=== PATIENT | male | born 1975 | race African-American/Black ===

== ENCOUNTER 2019-09-30 12:33 | Inpatient (IN) | payer OTHER ==
--- NOTE | 2019-09-30 16:32 | HP ---
CIWA Score Nausea/Vomitin Muscle Tremors: 3 Anxiety: 4-Mod. Anxious/Guarded Agitation: 2 Paroxysmal Sweats: 2 Orientation: 0-Oriented Tacttile Disturbances: 0-None Auditory Disturbances: 0-None Visual Disturbances: 0-None Headache: 0-None Present CIWA-Ar Total Score: 13 - Admission Criteria OASAS Guidelines: Admission for Medically Managed Detox: Requires at least one of the followin. CIWA greater than 12 2. Seizures within the past 24 hours 3. Delirium tremens within the past 24 hours 4. Hallucinations within the past 24 hours 5. Acute intervention needed for co occurring medical disorder 6. Acute intervention needed for co occurring psychiatric disorder 7. Severe withdrawal that cannot be handled at a lower level of care (continued vomiting, continued diarrhea, abnormal vital signs) requiring intravenous medication and/or fluids 8. Admission ROS [facility] Chief Complaint: Alcohol withdrawal symptoms Allergies/Adverse Reactions: Allergies Allergy/AdvReac Type Severity Reaction Status Date / Time No Known Allergies Allergy Verified 09/30/19 15:15 History of Present Illness: 44 years old male with a long history of alcohol dependence is seeking admission to detox. Patient reports that he has not been in detox before. He report medical history gout and denies psychiatric history. He reports insignificant period of sobriety. He is unemployed and lives with his mother in [place]. He reports that he had a blackout about a month ago. Exam Limitations: No Limitations - Ebola screening Have you traveled outside of the country in the last 21 days: No Have you had contact with anyone from an Ebola affected area: No Do you have a fever: No - Review of Systems Constitutional: Chills, Malaise, Night Sweats EENT: reports: No Symptoms Reported Cardiac: reports: No Symptoms Reported GI: reports: Poor Appetite, Poor Fluid Intake : reports: No Symptoms Reported Musculoskeletal: reports: No Symptoms Reported Integumentary: reports: Dryness, Flushing Neuro: reports: Tremors Endocrine: reports: No Symptoms Reported, Unexplained Weight Loss Hematology: reports: No Symptoms Reported Psychiatric: reports: Mood/Affect Appropiate, Orientated x3, Anxious, Depressed Other Systems: Reviewed and Negative Patient History - Patient Medical History Hx Anemia: No Hx Asthma: No Hx Chronic Obstructive Pulmonary Disease (COPD): No Hx Cancer: No Hx Cardiac Disorders: No Hx Congestive Heart Failure: No Hx Hypertension: No Hx Hypercholesterolemia: No Hx Pacemaker: No HX Cerebrovascular Accident: No Hx Seizures: No Hx Dementia: No Hx Diabetes: No Hx Gastrointestinal Disorders: No Hx Liver Disease: No Hx Genitourinary Disorders: No Hx Sexually Transmitted Disorders: No Hx Renal Disease (ESRD): No Hx Thyroid Disease: No Hx Human Immunodeficiency Virus (HIV): No (Negative 2019) Hx Hepatitis C: No Hx Depression: No Hx Suicide Attempt: No (Denies suicidal ideation at this time) Hx Bipolar Disorder: No Hx Schizophrenia: No Other Medical History: GOUT - Not on medication - Patient Surgical History Past Surgical History: No - PPD History Previous Implant?: No Documented Results: Negative w/proof Implanted On Prior [facility] Admission?: No PPD to be Administered?: Yes - Reproductive History Patient is a Female of Child Bearing Age (11 -55 yrs old): No (male) - Smoking Cessation Smoking history: Current every day smoker Have you smoked in the past 12 months: Yes Aproximately how many cigarettes per day: 20 Hx Chewing Tobacco Use: No Initiated information on smoking cessation: Yes 'Breaking Loose' booklet given: 09/30/19 - Substance & Tx. History Hx Alcohol Use: Yes Hx Substance Use: Yes Substance Use Type: Alcohol, Marijuana Hx Substance Use Treatment: No - Substances abused Alcohol Substance route: Oral Frequency: Daily Amount used: 3 beers Age of first use: 17 Date of last use: 09/30/19 Admission Physical Exam [facility] - Vital Signs Vital Signs: Vital Signs - 24 hr 09/30/19 15:15 Temperature 97.1 F L Pulse Rate 80 Respiratory 20 Rate Blood Pressure 128/79 - Physical General Appearance: Yes: Moderate Distress, Tremorous, Irritable, Sweating, Anxious HEENTM: Yes: Within Normal Limits Respiratory: Yes: Lungs Clear, Normal Breath Sounds, No Respiratory Distress Neck: Yes: Supple Breast: Yes: Breast Exam Deferred Cardiology: Yes: Regular Rhythm, Regular Rate Abdominal: Yes: Normal Bowel Sounds, Soft Genitourinary: Yes: Within Normal Limits Back: Yes: Normal Inspection Musculoskeletal: Yes: Within Normal Limits Extremities: Yes: Tremors Neurological: Yes: Motor Strength 5/5, Normal Mood/Affect Integumentary: Yes: Warm Lymphatic: Yes: Within Normal Limits - Diagnostic (1) Alcohol dependence with withdrawal, uncomplicated Current Visit: Yes Status: Acute (2) Nicotine dependence Current Visit: Yes Status: Acute Qualifiers: Nicotine product type: cigarettes Substance use status: in withdrawal Qualified Code(s): F17.213 - Nicotine dependence, cigarettes, with withdrawal (3) Gout Current Visit: Yes Status: Chronic Qualifiers: Gout site: foot Laterality: right Cleared for Admission [facility] - Detox or Rehab [facility] Level of Care: Medically Managed Detox Regimen/Protocol: Librium Breathalyzer - Breathalyzer Breathalyzer: 0.063 Urine Drug Screen - Test Device Lot number: [id number] Expiration date: 05/05/21 - Control Is test valid?: Yes - Results Drug screen NEGATIVE: No Urine drug screen results: THC-Marijuana Inpatient Rehab Admission - Rehab Decision to Admit Inpatient rehab admission?: No
[2019-09-30] MEDS ORDERED: NICOTINE POLACRILEX 2 MG GUM BUC PRN (16:39)
[2019-09-30] MEDS ORDERED: chlordiazePOXIDE HCL 10 MG CAPSULE PO PRN (16:39)
[2019-09-30] MEDS ORDERED: BISMUTH SUBSALICYLATE 524 MG/30 ML UD PO PRN (16:39)
[2019-09-30] MEDS ORDERED: MENTHOL/PHENOL 1 EACH UD MM PRN (16:39)
[2019-09-30] MEDS ORDERED: hydrOXYzine PAMOATE 25 MG CAPSULE (FP) PO PRN (16:39)
[2019-09-30] MEDS ORDERED: MAG HYDROX/AL HYDROX/SIMETH 30 ML UNIT-DOSE CUP PO PRN (16:39)
[2019-09-30] MEDS ORDERED: MAGNESIUM CITRATE 300 ML BOTTLE PO PRN (16:39)
[2019-09-30] MEDS ORDERED: IBUPROFEN 400 MG TABLET (FP) PO PRN (16:39)
[2019-09-30] MEDS ORDERED: ACETAMINOPHEN 325 MG TABLET (FP) PO PRN ×2 (16:39)
[2019-09-30] MEDS ORDERED: MAGNESIUM HYDROX 2400MG/30ML ORAL SUSPENSION 30 ML CUP PO PRN (16:39)
[2019-09-30] MEDS ORDERED: chlordiazePOXIDE HCL 25 MG CAPSULE PO ONE (17:30)
[2019-09-30] MEDS: THIAMINE HCL 100 MG TABLET (FP) PO SCH (22:27)
[2019-09-30] MEDS: chlordiazePOXIDE HCL 25 MG CAPSULE PO SCH (22:27)
[2019-10-01] MEDS: chlordiazePOXIDE HCL 25 MG CAPSULE PO SCH ×3 (05:30→22:12)
[2019-10-01] MEDS: METHOCARBAMOL 500 MG TABLET PO PRN ×2 (05:32→15:04)
[2019-10-01 10:19] LABS: HEMATOCRIT 36.3 % (35.4-49); HEMOGLOBIN 11.6 GM/dL (11.7-16.9); MCH 26.8 pg (25.7-33.7); MCHC 31.9 g/dl (32.0-35.9); PLATELET COUNT 181 K/MM3 (134-434); RBC 4.32 M/mm3 (4.00-5.60); RDW 13.9 % (11.9-15.9); WHITE BLOOD COUNT 5.4 K/mm3 (4.0-10.0)
[2019-10-01] MEDS: PRENATAL VITAMINS W/ FOLIC ACID TABLET (FP) PO SCH (10:21)
[2019-10-01] MEDS: NICOTINE 21 MG/24 HOURS TOPICAL PATCH TD SCH (10:21)
[2019-10-01 10:29] LABS: ALBUMIN 3.7 g/dl (3.4-5.0); BILIRUBIN,TOTAL 1.2 mg/dL (0.2-1); BLOOD UREA NITROGEN 6.3 mg/dL (7-18); CALCIUM 9.2 mg/dL (8.5-10.1); CREATININE 0.7 mg/dL (0.55-1.3); TOT PROT 7.3 g/dl (6.4-8.2)
--- NOTE | 2019-10-01 12:23 | PN ---
S CIWA - CIWA Score Nausea/Vomitin-No Nausea/No Vomiting Muscle Tremors: 3 Anxiety: 2 Agitation: 3 Paroxysmal Sweats: 2 Orientation: 0-Oriented Tacttile Disturbances: 0-None Auditory Disturbances: 0-None Visual Disturbances: 0-None Headache: 0-None Present CIWA-Ar Total Score: 10 S Progress Note (SOAP) Subjective: sweats shakes interrupted sleep body aches irritable Objective: 10/01/19 12:19 Vital Signs Temperature 99.7 F H 10/01/19 09:29 Pulse Rate 86 10/01/19 09:29 Respiratory Rate 16 10/01/19 09:29 Blood Pressure 155/104 H 10/01/19 09:29 O2 Sat by Pulse Oximetry (%) Laboratory Tests 10/01/19 10/01/19 10/01/19 07:40 07:40 07:40 WBC 5.4 RBC 4.32 Hgb 11.6 L Hct 36.3 MCV 84.0 MCH 26.8 MCHC 31.9 L RDW 13.9 Plt Count 181 MPV 8.0 Sodium 141 Potassium 4.0 Chloride 107 Carbon Dioxide 30 Anion Gap 4 L BUN 6.3 L Creatinine 0.7 Est GFR (CKD-EPI)AfAm 133.96 Est GFR (CKD-EPI)NonAf 115.58 Random Glucose 91 Calcium 9.2 Total Bilirubin 1.2 H AST 44 H ALT 34 Alkaline Phosphatase 43 L Total Protein 7.3 Albumin 3.7 RPR Titer Nonreactive aaox3 ambulating no acute distress Assessment: 10/01/19 12:23 withdrawal sx Plan: continue detox
--- NOTE | 2019-10-01 13:34 | EKG ---
Test Reason : Blood Pressure : / mmHG Vent. Rate : 085 BPM Atrial Rate : 085 BPM P-R Int : 186 ms QRS Dur : 094 ms QT Int : 372 ms P-R-T Axes : 076 057 059 degrees QTc Int : 442 ms NORMAL SINUS RHYTHM NORMAL ECG NO PREVIOUS ECGS AVAILABLE Confirmed by GUILLE CAMARILLO MD ([id number]) on 10/01/2019 1:34:02 PM Referred By: Confirmed By:GUILLE CAMARILLO MD
--- NOTE | 2019-10-01 15:24 | PN ---
[facility] Progress Note Note: pt requesting meloxicam however our pharmacy does not carry this medication. Pt agreed to have motrin 600mg and roboxin prn.
[2019-10-01] MEDS: MELATONIN 5 MG TABLETS PO PRN (22:12)
[2019-10-01] MEDS: IBUPROFEN 600 MG TABLET (FP) PO PRN (22:34)
[2019-10-01] MEDS: THIAMINE HCL 100 MG TABLET (FP) PO SCH (22:34)
[2019-10-02] MEDS: chlordiazePOXIDE 5 MG CAPSULE PO SCH ×3 (06:25→22:47)
[2019-10-02] MEDS: PRENATAL VITAMINS W/ FOLIC ACID TABLET (FP) PO SCH (10:39)
[2019-10-02] MEDS: NICOTINE 21 MG/24 HOURS TOPICAL PATCH TD SCH (10:39)
--- NOTE | 2019-10-02 15:03 | PN ---
S CIWA - CIWA Score Nausea/Vomitin-No Nausea/No Vomiting Muscle Tremors: 3 Anxiety: 3 Agitation: 2 Paroxysmal Sweats: 3 Orientation: 0-Oriented Tacttile Disturbances: 0-None Auditory Disturbances: 0-None Visual Disturbances: 2-Mild Sensitivity Headache: 0-None Present CIWA-Ar Total Score: 13 B[facility] Progress Note (SOAP) Subjective: Sweating, Tremors, Interrupted Sleep. Objective: PATIENT A & O X 3. IN NO ACUTE DISTRESS. 10/02/19 15:03 Vital Signs Temperature 98.1 F 10/02/19 13:29 Pulse Rate 90 10/02/19 13:29 Respiratory Rate 18 10/02/19 13:29 Blood Pressure 149/99 10/02/19 13:29 O2 Sat by Pulse Oximetry (%) Laboratory Tests 10/01/19 10/01/19 10/01/19 07:40 07:40 07:40 WBC 5.4 RBC 4.32 Hgb 11.6 L Hct 36.3 MCV 84.0 MCH 26.8 MCHC 31.9 L RDW 13.9 Plt Count 181 MPV 8.0 Sodium 141 Potassium 4.0 Chloride 107 Carbon Dioxide 30 Anion Gap 4 L BUN 6.3 L Creatinine 0.7 Est GFR (CKD-EPI)AfAm 133.96 Est GFR (CKD-EPI)NonAf 115.58 Random Glucose 91 Calcium 9.2 Total Bilirubin 1.2 H AST 44 H ALT 34 Alkaline Phosphatase 43 L Total Protein 7.3 Albumin 3.7 RPR Titer Nonreactive LABS NOTED. Assessment: 10/02/19 15:04 WITHDRAWAL SYMPTOMS. ELEVATED BLOOD PRESSURE (NO HISTORY OF HYPERTENSION REPORTED BY PATIENT ON DETOX ADMISSION ASSESSMENT). ELEVATED AST LEVEL. 10/02/19 15:06 Plan: CONTINUE DETOX. CLONIDINE, 0.1 MG X 1 DOSE ORALLY FOR ELEVATED BLOOD PRESSURE.
[2019-10-02] MEDS ORDERED: cloNIDine HCL 0.1 MG TABLET PO ONE (15:05)
[2019-10-02] MEDS: MELATONIN 5 MG TABLETS PO PRN (22:47)
[2019-10-02] MEDS: THIAMINE HCL 100 MG TABLET (FP) PO SCH (22:47)
[2019-10-02] MEDS: IBUPROFEN 600 MG TABLET (FP) PO PRN (22:48)
[2019-10-03] MEDS ORDERED: chlordiazePOXIDE HCL 10 MG CAPSULE PO PRN
[2019-10-03] MEDS: chlordiazePOXIDE HCL 10 MG CAPSULE PO SCH ×3 (06:38→22:15)
[2019-10-03] MEDS: PRENATAL VITAMINS W/ FOLIC ACID TABLET (FP) PO SCH (10:29)
[2019-10-03] MEDS: NICOTINE 21 MG/24 HOURS TOPICAL PATCH TD SCH (10:29)
[2019-10-03] MEDS ORDERED: cloNIDine HCL 0.1 MG TABLET PO PRN (15:49)
--- NOTE | 2019-10-03 15:54 | PN ---
S CIWA - CIWA Score Nausea/Vomitin-No Nausea/No Vomiting Muscle Tremors: None Anxiety: 2 Agitation: 2 Paroxysmal Sweats: 2 Orientation: 0-Oriented Tacttile Disturbances: 0-None Auditory Disturbances: 0-None Visual Disturbances: 0-None Headache: 0-None Present CIWA-Ar Total Score: 6 BHS Progress Note (SOAP) Subjective: Sweating, interrupted sleep Objective: 10/03/19 15:48 Last Vital Signs Temp Pulse Resp BP Pulse Ox 98.2 F 70 18 140/95 10/03/19 13:41 10/03/19 13:41 10/03/19 13:41 10/03/19 13:41 Elevated b/p: denies htn, not on medication Laboratory Tests 10/01/19 10/01/19 10/01/19 07:40 07:40 07:40 WBC 5.4 RBC 4.32 Hgb 11.6 L Hct 36.3 MCV 84.0 MCH 26.8 MCHC 31.9 L RDW 13.9 Plt Count 181 MPV 8.0 Sodium 141 Potassium 4.0 Chloride 107 Carbon Dioxide 30 Anion Gap 4 L BUN 6.3 L Creatinine 0.7 Est GFR (CKD-EPI)AfAm 133.96 Est GFR (CKD-EPI)NonAf 115.58 Random Glucose 91 Calcium 9.2 Total Bilirubin 1.2 H AST 44 H ALT 34 Alkaline Phosphatase 43 L Total Protein 7.3 Albumin 3.7 RPR Titer Nonreactive Labs reviewed Assessment: 10/03/19 15:52 Withdrawal sxs Elevated b/p noted Plan: Continue detox Encouraged PO water intake Patient scheduled for discharge tomorrow Elevated b/p: start clonidine 0.1mg PO q8hr prn if b/p > 140/90 or for withdrawal sxs (hold if b/p < 110/60)
[2019-10-03] MEDS: THIAMINE HCL 100 MG TABLET (FP) PO SCH (22:15)
[2019-10-03] MEDS: MELATONIN 5 MG TABLETS PO PRN (22:15)
[2019-10-03] MEDS: IBUPROFEN 600 MG TABLET (FP) PO PRN (22:17)
[2019-10-04] MEDS ORDERED: chlordiazePOXIDE HCL 10 MG CAPSULE PO ONE (05:00)
[2019-10-04 06:54] VITALS: BP 131/79; PULSE 65; TEMP 97.9
--- NOTE | 2019-10-04 08:50 | DS ---
[facility] Detox Discharge Summary Admission Date: 09/30/19 Discharge Date: 10/04/19 - History Present History: Alcohol Dependence - Physical Exam Results Vital Signs: Vital Signs Temperature 97.9 F 10/04/19 06:53 Pulse Rate 65 10/04/19 06:53 Respiratory Rate 18 10/04/19 06:53 Blood Pressure 131/79 10/04/19 06:53 O2 Sat by Pulse Oximetry (%) Pertinent Admission Physical Exam Findings: Vital Signs Temperature 97.9 F 10/04/19 06:53 Pulse Rate 65 10/04/19 06:53 Respiratory Rate 18 10/04/19 06:53 Blood Pressure 131/79 10/04/19 06:53 O2 Sat by Pulse Oximetry (%) Laboratory Tests 10/01/19 10/01/19 10/01/19 07:40 07:40 07:40 WBC 5.4 RBC 4.32 Hgb 11.6 L Hct 36.3 MCV 84.0 MCH 26.8 MCHC 31.9 L RDW 13.9 Plt Count 181 MPV 8.0 Sodium 141 Potassium 4.0 Chloride 107 Carbon Dioxide 30 Anion Gap 4 L BUN 6.3 L Creatinine 0.7 Est GFR (CKD-EPI)AfAm 133.96 Est GFR (CKD-EPI)NonAf 115.58 Random Glucose 91 Calcium 9.2 Total Bilirubin 1.2 H AST 44 H ALT 34 Alkaline Phosphatase 43 L Total Protein 7.3 Albumin 3.7 RPR Titer Nonreactive aaox3 ambulating no acute distress - Treatment Hospital Course: Detox Protocol Followed, Detoxed Safely, Responded well, Discharged Condition Good, Rehab Referral Accepted Patient has Accepted a Rehab Referral to: referred to [facility] - Diagnosis (1) Alcohol dependence with withdrawal, uncomplicated Current Visit: Yes Status: Chronic (2) Elevated aspartate aminotransferase level Current Visit: Yes Status: Acute (3) Elevated blood pressure reading in office with diagnosis of hypertension Current Visit: Yes Status: Acute (4) Nicotine dependence Current Visit: Yes Status: Acute Qualifiers: Nicotine product type: cigarettes Substance use status: uncomplicated Qualified Code(s): F17.210 - Nicotine dependence, cigarettes, uncomplicated (5) Gout Current Visit: No Status: Suspected Qualifiers: Gout site: foot Laterality: right - AMA Did Patient Leave Against Medical Advice: No
== END 2019-10-04 09:32 | disposition home or self-care (01) | DRG 897 ==
LOC: YASAS 12:33 → Y6N 17:04
PROVIDERS: ADMIT Allergy & Immunology; ATTEND Allergy & Immunology
PROC: HZ2ZZZZ Detoxification Services for Substance Abuse Treatment (ICD-10-PCS; principal; 2019-09-30)
DX: F10.230 Alcohol dependence with withdrawal, uncomplicated (principal); F17.210 Nicotine dependence, cigarettes, uncomplicated; R74.0 Nonspecific elevation of levels of transaminase and lactic acid dehydrogenase [LDH]; R03.0 Elevated blood-pressure reading, without diagnosis of hypertension
CPT/HCPCS: 36415; 80053; 85027; 86593; 93005; 93010; J0735